=== PATIENT | male | born 1985 | race Two or more races ===

== ENCOUNTER 2018-08-16 12:01 | Emergency (ER) | payer OTHER ==
[2018-08-16 12:24] VITALS: BMI 39.6
--- NOTE | 2018-08-16 12:51 | PDOC ---
History of Present Illness - General Chief Complaint: Chest Pain Stated Complaint: SENT BY PCP Time Seen by Provider: 08/16/18 12:33 History Source: Patient Exam Limitations: No Limitations - History of Present Illness Initial Comments: 08/16/18 12:37 [id number] with h/o obesity who p/w about 3 months off-and-on chest pressure with occasional sharp or burning pain. He states that the pain last all day then subsides the next day, then reoccurs. He has not taken any medications for the pain. He denies any recent f/c/n/v/d/c, SOB, abdominal pain, leg swelling, back pain, headache, lightheadedness/dizziness, or other symptoms. He does note having gained about 25 lbs in the past ~3 months and cites unhealthy eating. He additionally notes having been diagnosed with high cholesterol when he was a child, but states he never was treated for this and it "never ended up being a problem". Past History - Past Medical History Allergies/Adverse Reactions: Allergies Allergy/AdvReac Type Severity Reaction Status Date / Time No Known Allergies Allergy Verified 08/16/18 12:19 Home Medications: Ambulatory Orders NK [No Known Home Medication] 08/16/18 COPD: No Hypercholesterolemia: Yes Thyroid Disease: No - Suicide/Smoking/Psychosocial Hx Smoking History: Never smoked Have you smoked in the past 12 months: No Hx Alcohol Use: No Drug/Substance Use Hx: No Substance Use Type: None Review of Systems - Review of Systems Able to Perform ROS?: Yes Comments:: 08/16/18 15:05 GEN: no fever, chills, malaise, generalized weakness, or weight change HEENT: no ear pain, sore throat, vision change, or eye pain CV: chest pain, SOB, no palpitations, lightheadedness, syncope, or edema RESP: no cough, wheezing, or GI: no abdominal pain, nausea, vomiting, diarrhea, constipation, or white/black/ bloody stool : no dysuria, hematuria, incontinence, retention, bleeding, or discharge MSK: no neck/back pain, muscle weakness/pain, or joint swelling/pain NEURO: no headache, seizure, vertigo, numbness, tingling, or focal weakness PSYCH: no substance use, no behavior change SKIN: no jaundice, no rash ROS otherwise negative except as noted in HPI *Physical Exam - Vital Signs Last Vital Signs Temp Pulse Resp BP Pulse Ox 98 F 93 H 20 141/81 98 08/16/18 19:09 08/16/18 19:09 08/16/18 19:09 08/16/18 19:09 08/16/18 19:09 - Physical Exam Comments: 08/16/18 15:15 GENERAL: well-appearing, A/Ox4, no distress, answers questions appropriately HEENT: PERRLA, EOMI, moist mucous membranes NECK/BACK: no midline ttp, no spinal stepoff or deformity, no hematoma, full ROM , neck supple CARDIOVASCULAR: regular rate/rhythm, normal S1S2, no MGR, strong peripheral pulses, capillary refill <2 seconds, extremities wwp, no edema LUNGS/RESPIRATORY: no respiratory distress, CTAB GI/ABDOMEN: symmetric [id number], normoactive BS, soft, no ttp, no midline pulsatile masses : no CVA tenderness EXTREMITIES: no muscle atrophy, no acute deformity SKIN: warm and dry, no pallor, no jaundice, no rash, no bruising, no skin breakdown, no cuts, no lesions NEUROLOGICAL: GCS 15, CN II-XII grossly intact, 5/5 strength proximally and distally, no facial droop Heart Score/ECG Review - History History: Slightly suspicious - Electrocardiogram EKG: Non specific repolarization disturbance - Age Age: </= 45 - Risk Factors Risk Factors Heart Score: Yes Hx Hypercholesterolemia, Yes Hx Obesity Based on the list above the patient has:: 1-2 risk factors - Troponin Troponin: </= normal limit - Score Heart Score - Total: 2 - P and [place] Comment:: Sinus tachycardia, rate of 108, normal axis and intervals, anterior early repol versus small MARY but there are no reciprocal changes ED Treatment Course - LABORATORY CBC & Chemistry Diagram: 08/16/18 12:46 08/16/18 12:46 - ADDITIONAL ORDERS Additional order review: 08/16/18 12:46 RBC 5.35 MCV 91.3 MCHC 34.7 RDW 13.1 MPV 8.9 Neutrophils % 52.7 Lymphocytes % 35.9 Monocytes % 9.4 Eosinophils % 1.1 Basophils % 0.9 - RADIOLOGY Radiology Studies Ordered: Category Date Time Status CHEST X-RAY PORTABLE* [RAD] Stat Radiology 08/16/18 12:36 Completed - Medications Given in the ED: ED Medications Discontinued Medications Generic Name Dose Route Start Last Admin Trade Name Benedict PRN Reason Stop Dose Admin Acetaminophen 1,000 mg 08/16/18 13:59 08/16/18 14:14 Ofirmev Injection - IVPB 08/16/18 14:00 1,000 mg ONCE ONE Administration Sodium Chloride 1,000 mls @ 1,000 mls/hr 08/16/18 13:59 08/16/18 14:14 Normal Saline - IV 08/16/18 14:58 1,000 mls/hr ASDIR STA Administration Ketamine HCl 355 mg 08/16/18 14:28 08/16/18 15:39 Ketalar - IVPUSH 08/16/18 14:29 Not Given ONCE ONE Medical Decision Making - Medical Decision Making 08/16/18 15:43 Adult Pt p/w chest pain intermittently x3 months. Initial Vital Signs Temp Pulse Resp BP Pulse Ox 97.9 F 104 H 20 140/96 98 08/16/18 12:20 08/16/18 12:20 08/16/18 12:20 08/16/18 12:20 08/16/18 12:20 Exam: As noted in Physical Exam section. DDX IBNLT: ACS, pericarditis, tamponade, aortic dissection, AAA, PTX, PE, esophageal tear, esophagitis (e.g. pill, infectious), esophageal stricture, esophageal FB, gastritis, PUD, pancreatitis, cholecystitis, cholangitis, colitis , bowel perforation, PNA/bronchitis, pleurisy, pleuritis, MVP, pulmonary HTN, musculoskeletal, panic/anxiety, etc. W/U ordered: Labs as noted below EKG CXR. TX ordered: monitor, ofirmev EKG: Reviewed; results as noted in ECG Review section. CXR: Nothing acute Laboratory Tests 08/16/18 08/16/18 08/16/18 12:46 12:46 12:46 WBC 6.2 RBC 5.35 Hgb 16.9 Hct 48.9 MCV 91.3 MCH 31.6 MCHC 34.7 RDW 13.1 Plt Count 224 MPV 8.9 Absolute Neuts (auto) 3.3 Neutrophils % 52.7 Lymphocytes % 35.9 Monocytes % 9.4 Eosinophils % 1.1 Basophils % 0.9 Nucleated RBC % 0 PT with INR 11.20 INR 0.95 PTT (Actin FS) 39.8 H D-Dimer Sodium 137 Potassium 4.0 Chloride 104 Carbon Dioxide 27 Anion Gap 7 L BUN 15 Creatinine 1.0 Creat Clearance w eGFR 86.06 Random Glucose 156 H Calcium 8.4 L Magnesium 2.2 Total Bilirubin 0.3 AST 24 ALT 67 H Alkaline Phosphatase 70 Creatine Kinase 96 Troponin I < 0.02 B-Natriuretic Peptide 7.0 Total Protein 7.5 Albumin 3.9 Lipase 128 Blood Type Antibody Screen 08/16/18 08/16/18 12:46 12:46 WBC RBC Hgb Hct MCV MCH MCHC RDW Plt Count MPV Absolute Neuts (auto) Neutrophils % Lymphocytes % Monocytes % Eosinophils % Basophils % Nucleated RBC % PT with INR INR PTT (Actin FS) D-Dimer 249 Sodium Potassium Chloride Carbon Dioxide Anion Gap BUN Creatinine Creat Clearance w eGFR Random Glucose Calcium Magnesium Total Bilirubin AST ALT Alkaline Phosphatase Creatine Kinase Troponin I B-Natriuretic Peptide Total Protein Albumin Lipase Blood Type O POSITIVE Antibody Screen Negative 08/16/18 15:46 I have spoken with Dr. Arrington who will consult and see the patient in the ED. Patient will need an echo but it is unclear whether he will need this as inpatient or outpatient. Will repeat troponin. 08/16/18 18:07 Reassessment: Patient states pain has resolved, no sxs currently, and he wants to go home. Echocardiogram official read is negative. Repeat troponin is negative. Repeat VS: HR 95 bpm, SpO2 98% on RA, BP 135/78 RUE. 08/16/18 18:20 Repeat cardiac enzymes are negative. No new abnormal rhythms have been observed on the traffic monitor specialist. On last reassessment VS are stable, Pts pain is resolved, and exam is benign. The Pts HEART score indicates they are low risk and do not require admission currently. The Pt is appropriate for discharge with close outpatient follow up. Referral information is given for Dr. Arrington. They are comfortable with this plan and will follow up with their primary care provider in 1-3 days. Specific return precautions are discussed and they will come back to the ER if necessary. *DC/Admit/Observation/Transfer Diagnosis at time of Disposition: Chest pain Qualifiers: Chest pain type: unspecified Qualified Code(s): R07.9 - Chest pain, unspecified - Discharge Dispostion Disposition: HOME Condition at time of disposition: Stable Decision to Admit order: No - Referrals Referrals: Duncan Arrington MD [Staff Physician] - - Patient Instructions Printed Discharge Instructions: DI for Chest Pain Additional Instructions: You were seen in the ER for chest pain. We did lab work on your blood, an electrocardiogram, a chest x-ray, and an echocardiogram, and we did not find any concerning abnormalities. Your symptoms improved with the medications we gave you in the ER. You saw the group billing coordinator Dr. Arrington here in the ER while you were here. After our assessment, we do not believe you are having a medical emergency at this time, and we believe you are safe to go home. Take over the counter pain medications for your pain, as instructed on the medication label. Please follow up with your regular doctor in 1-3 days, and with the group billing coordinator as well. We are giving you referral information for our group billing coordinator, so call their clinic as soon as possible, remind them you were seen in the ER for chest pain, and tell them you need an appointment. If you have any new or worsening symptoms, especially worsening chest pain, jaw pain, shoulder/arm pain, shortness of breath, sweats, nausea, loss of consciousness, palpitations, or other symptoms, please come back to the ER at any time (24 hours a day). If you are having severe or life threatening symptoms, or symptoms that make it unsafe to drive or have someone drive you, please call 911. - Post Discharge Activity Forms/Work/School Notes: Back to Work
[2018-08-16 13:14] LABS: BASO % 0.9 % (0-2.0); EOS % 1.1 % (0-4.5); HEMATOCRIT 48.9 % (35.4-49); HEMOGLOBIN 16.9 GM/dL (11.7-16.9); LYMPH % 35.9 % (8-40); MCH 31.6 pg (25.7-33.7); MCHC 34.7 g/dl (32.0-35.9); MEAN CELL VOLUME 91.3 fl (80-96); MEAN PLT VOLUME 8.9 fl (7.5-11.1); MONO % 9.4 % (3.8-10.2); NEUT % 52.7 % (42.8-82.8); PLATELET COUNT 224 K/MM3 (134-434); RBC 5.35 M/mm3 (4.00-5.60); RDW 13.1 % (11.9-15.9); WHITE BLOOD COUNT 6.2 K/mm3 (4.0-10.0)
[2018-08-16 13:38] LABS: ACTIVATED PTT 39.8 SECONDS (25.2-36.5); ALBUMIN 3.9 g/dl (3.4-5.0); ALK PHOS 70 U/L (45-117); ANION GAP 7 MMOL/L (8-16); BILIRUBIN,TOTAL 0.3 mg/dL (0.2-1); BLOOD UREA NITROGEN 15 mg/dL (7-18); CALCIUM 8.4 mg/dL (8.5-10.1); CHLORIDE 104 mmol/L (98-107); CO2 27 mmol/L (21-32); GLUCOSE,RANDOM 156 mg/dL (74-106); MAGNESIUM 2.2 mg/dL (1.8-2.4); SGOT/AST 24 U/L (15-37); SGPT/ALT 67 U/L (13-61); SODIUM 137 mmol/L (136-145); TOT PROT 7.5 g/dl (6.4-8.2)
[2018-08-16 13:52] LABS: INR 0.95 (0.83-1.09); PROTHROMBIN TIME (PATIENT) 11.2 SEC (9.7-13.0)
[2018-08-16] MEDS ORDERED: ACETAMINOPHEN 1000 MG/100 ML VIAL (NON FORMULARY) IVPB ONE (13:59)
[2018-08-16] MEDS ORDERED: SODIUM CHLORIDE 1,000 ML IV STA (13:59)
--- NOTE | 2018-08-16 13:59 | PDOC ---
Attending Attestation - Resident Resident Name: Puja Parra - ED Attending Attestation I have performed the following: I have examined & evaluated the patient, The case was reviewed & discussed with the resident, I agree w/resident's findings & plan, Exceptions are as noted - HPI HPI: 08/16/18 13:53 The patient is 33 year old male with a significant past medical history of obesity who presents to the ED with 1 month of intermittent chest pressure with occasional sharp/burning pain. He states that the pain sometimes lasts all day then subsides the next day. Denies F/C. Denies cough. Denies SOB. Pain is not positional and not pleuritic. 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 Pt was establishing care at outpt clinic today and had EKG that showed ST elevations. Pt was sent here for further evaluation. - Physicial Exam PE: 08/16/18 13:55 GENERAL: Awake, alert, and fully oriented, in no acute distress. HEAD: No signs of trauma EYES: PERRLA, EOMI, sclera anicteric, conjunctiva clear ENT: Auricles normal inspection, hearing grossly normal, nares patent, oropharynx clear without exudates. Moist mucosa NECK: Nontender, no stepoffs, Normal ROM, supple, no lymphadenopathy, JVD, or masses LUNGS: Breath sounds equal, clear to auscultation bilaterally. No wheezes, and no crackles HEART: Regular rate and rhythm, normal S1 and S2, no murmurs, rubs or gallops ABDOMEN: Soft, nontender, normoactive bowel sounds. No guarding, no rebound. No masses EXTREMITIES: Normal range of motion, no edema. No clubbing or cyanosis. No cords, erythema, or tenderness NEUROLOGICAL: Cranial nerves II through XII intact. 5/5 strength and sensation in all extremities, Normal speech, normal gait, normal cerebellar function SKIN: Warm, Dry, normal turgor, no rashes or lesions noted. - Medical Decision Making 08/16/18 13:57 33 M with intermittent chest pain x 1 month. EKG shows diffuse ST elevations but NO repriprocal changes. Unlikely to represent ACS. Pt without any infectious symptoms to suggest pericarditis, but this is a possibility. Pt is tachycardic in ED. 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 - Labs, ddimer, trop - CXR - IVF 08/16/18 17:05 Labs wnl, dimer negative Trop negative x2 Dr. Arrington in ED to evaluate pt Echo ordered 08/16/18 17:33 Echo wnl Pt evaluated and cleared for DC by Dr. Arrington Repeat HR 95 Pt is well appearing, with normal vitals. Clinically stable for DC at this time. I discussed the physical exam findings, ancillary test results and final diagnoses with the patient. I answered all of the patient's questions. The patient was satisfied with the care received and felt comfortable with the discharge plan and treatment plan. The patient agrees to follow up with the primary care physician within 24-72 hours.
[2018-08-16] MEDS ORDERED: ACETAMINOPHEN INJECTION 100 ML IVPB ONE (14:09)
[2018-08-16] MEDS ORDERED: KETAMINE HCL 200 MG/20 ML VIAL IVPUSH ONE (14:28)
[2018-08-16 15:30] LABS: LIPASE 128 U/L (73-393)
--- NOTE | 2018-08-16 17:25 | ECHO ---
Name: BRI RIVAS Exam:Adult Echocardiogram Study Date: 08/16/2018 04:27 PM Age: 33 yrs Reason For Study: Chest pain Height: 68 in Weight: 261 lb BSA: 2.3 m2 MMode/2D Measurements & Calculations IVSd: 1.1 cm Ao root diam: 2.8 cm LVIDd: 3.6 cm LA dimension: 3.7 cm LVIDs: 2.7 cm LVPWd: 1.0 cm EDV(Teich): 55.5 ml ESV(Teich): 25.8 ml Doppler Measurements & Calculations MV E max jenise: 64.2 cm/sec Ao V2 max: 105.0 cm/sec MV A max jenise: 64.2 cm/sec Ao max P.4 mmHg MV E/A: 1.0 Ao V2 mean: 74.1 cm/sec MV dec time: 0.20 sec Ao mean P.0 mmHg Ao V2 VTI: 16.9 cm LV V1 max P.7 mmHg Med Peak E' Jenise: 5.5 cm/sec LV V1 mean P.0 mmHg Med E/e': 11.7 LV V1 max: 108.0 cm/sec Lat Peak E' Jenise: 8.9 cm/sec LV V1 mean: 62.9 cm/sec Lat E/e': 7.2 LV V1 VTI: 15.0 cm Left Ventricle The left ventricular size, thickness and function are normal. Ejection Fraction = 70%. Left Ventricul ar Filling pattern is normal for age. No regional wall motion abnormalities noted. Right Ventricle The right ventricle is normal in size and function. Atria Normal left and right atrial size and function. Mitral Valve The mitral valve is normal in structure and function. Tricuspid Valve The tricuspid valve is normal in structure and function. There was insufficient TR detected to calcul ate RV systolic pressure. Aortic Valve The aortic valve is normal in structure and function. Pulmonic Valve The pulmonic valve is not well visualized. Great Vessels The aortic root is normal size. Pericardium/Pleura There is no pericardial effusion. Interpretation Summary This was essentially a normal study. MD Jolie Pappas 08/16/2018 05:24 PM
[2018-08-16 19:11] VITALS: BP 141/81; PULSE 93; TEMP 98
--- NOTE | 2018-08-16 21:57 | EKG ---
Test Reason : Blood Pressure : / mmHG Vent. Rate : 108 BPM Atrial Rate : 108 BPM P-R Int : 146 ms QRS Dur : 096 ms QT Int : 334 ms P-R-T Axes : 042 074 041 degrees QTc Int : 447 ms SINUS TACHYCARDIA NONSPECIFIC ST ABNORMALITY ABNORMAL ECG NO PREVIOUS ECGS AVAILABLE Confirmed by MD JACE, SUMANTH ([id number]) on 08/16/2018 9:57:15 PM Referred By: Confirmed By:SUMANTH MCCORMICK MD
--- NOTE | 2018-08-16 23:07 | CON.CARD ---
Consult Consult Specialty:: cardiology Reason for Consultation:: chest pain; EKG changes - History of Present Illness Chief Complaint: Pt A&Ox3; asymptomatic presently. History of Present Illness: The patient is 33 year old male with a significant past medical history of obesity who presents to the ED with 1 month of intermittent chest pressure with occasional sharp/burning pain. He states that the pain sometimes lasts all day then subsides the next day. Denies F/C. Denies cough. Denies SOB. Pain is not positional and not pleuritic. 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 Pt was establishing care at outpt clinic today and had EKG that showed ST elevations. Pt was sent here for further evaluation. - Alcohol/Substance Use Hx Alcohol Use: No - Smoking History Smoking history: Never smoked Have you smoked in the past 12 months: No Home Medications - Allergies Allergies/Adverse Reactions: Allergies Allergy/AdvReac Type Severity Reaction Status Date / Time No Known Allergies Allergy Verified 08/16/18 12:19 - Home Medications Home Medications: Ambulatory Orders NK [No Known Home Medication] 08/16/18 Vital Signs: Vital Signs Temperature 98 F 08/16/18 19:09 Pulse Rate 93 H 08/16/18 19:09 Respiratory Rate 20 08/16/18 19:09 Blood Pressure 141/81 08/16/18 19:09 O2 Sat by Pulse Oximetry (%) 98 08/16/18 19:09 - Other Data Labs, Other Data: CBC, BMP 08/16/18 12:46 08/16/18 12:46 INR, PTT INR 0.95 (0.83-1.09) 08/16/18 12:46 Troponin, BNP 08/16/18 08/16/18 12:46 16:15 Troponin I < 0.02 < 0.02 B-Natriuretic Peptide 7.0 Troponin, BNP 08/16/18 08/16/18 12:46 16:15 Troponin I < 0.02 < 0.02 B-Natriuretic Peptide 7.0
--- NOTE | 2018-08-18 15:17 | EKG ---
Test Reason : Blood Pressure : / mmHG Vent. Rate : 078 BPM Atrial Rate : 078 BPM P-R Int : 134 ms QRS Dur : 072 ms QT Int : 348 ms P-R-T Axes : 055 033 041 degrees QTc Int : 396 ms POOR DATA QUALITY, INTERPRETATION MAY BE ADVERSELY AFFECTED NORMAL SINUS RHYTHM NORMAL ECG WHEN COMPARED WITH ECG OF 16-AUG-2018 12:17, QRS DURATION HAS DECREASED ST NO LONGER ELEVATED IN INFERIOR LEADS QT HAS SHORTENED Confirmed by LORRIE DAY MD ([id number]) on 08/18/2018 3:16:36 PM Referred By: Confirmed By:LORRIE DAY MD
== END 2018-08-16 19:11 | disposition home or self-care (01) ==
LOC: JER 12:01
PROC: 3E033NZ Introduction of Analgesics, Hypnotics, Sedatives into Peripheral Vein, Percutaneous Approach (ICD-10-PCS; principal; 2018-08-16)
DX: R07.9 Chest pain, unspecified (principal); E78.00 Pure hypercholesterolemia, unspecified
CPT/HCPCS: 36415; 71045-TC-FY; 80053; 82550; 83690; 83735; 83880; 84484; 85025; 85379; 85610; 85730; 86850; 86900; 86901; 93005; 93010; 93306-TC; 96374; 99283-25; J0131; J7030

== ENCOUNTER 2019-03-28 14:11 | Emergency (ER) | payer OTHER ==
--- NOTE | 2019-03-28 14:20 | PDOC ---
Rapid Medical Evaluation Time Seen by Provider: 03/28/19 14:16 Medical Evaluation: Allergies Allergy/AdvReac Type Severity Reaction Status Date / Time No Known Allergies Allergy Verified 08/16/18 12:19 03/28/19 14:18 CC: headache s/p head trauma 2 days ago PE: tenderness to right orbit. Ecchymosis present to right inferior orbit. Healing laceration to lateral right orbit. EOMI. PERRLA Orders: CT head and facial bones The patient will proceed to the ER for continued Evaluation. Discharge Disposition - Diagnosis Post-traumatic headache - Referrals - Patient Instructions - Post Discharge Activity
[2019-03-28 14:25] VITALS: BP 151/97; PULSE 109; TEMP 98.3; BMI 38.0
--- NOTE | 2019-03-28 15:51 | PDOC ---
History of Present Illness - General Chief Complaint: Headache Stated Complaint: SENT BY PCP/HEADEACHE Time Seen by Provider: 03/28/19 14:16 History Source: Patient Exam Limitations: No Limitations - History of Present Illness Initial Comments: 03/28/19 15:46 33-year-old male presents to ED with complaints of pain to his right forehead and cheek along with mild dizziness since being struck by a building ceiling on Wednesday. Patient states there was right and ceiling on the building where he resides when he was walking outside and fell striking him on his face. Patient states no LOC and went to his doctor's today for the complaints and was sent to the ER for further evaluation. Patient denies visual changes, nausea, neck pain , or weakness. 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 denies: nausea/vomiting Past History - Travel Traveled outside of the country in the last 30 days: No Close contact w/someone who was outside of country & ill: No - Past Medical History Allergies/Adverse Reactions: Allergies Allergy/AdvReac Type Severity Reaction Status Date / Time No Known Allergies Allergy Verified 08/16/18 12:19 Home Medications: Ambulatory Orders NK [No Known Home Medication] 08/16/18 COPD: No HTN: Yes Hypercholesterolemia: Yes Thyroid Disease: No - Psycho Social/Smoking Cessation Hx Smoking History: Never smoked Have you smoked in the past 12 months: No Information on smoking cessation initiated: No Hx Alcohol Use: No Drug/Substance Use Hx: No Substance Use Type: None Patient Lives Alone: No Lives with/in: spouse/SO Review of Systems - Review of Systems Able to Perform ROS?: Yes Constitutional: No: Symptoms Reported HEENTM: No: Symptoms Reported Respiratory: No: Symptoms reported Cardiac (ROS): Yes: Lightheadedness ABD/GI: No: Nausea : No: Symptoms Reported Musculoskeletal: No: Symptoms Reported Integumentary: Yes: See HPI Neurological: Yes: Dizziness Hematologic/Lymphatic: No: Symptoms Reported *Physical Exam - Vital Signs Last Vital Signs Temp Pulse Resp BP Pulse Ox 98.3 F 109 H 20 151/97 96 03/28/19 14:21 03/28/19 14:21 03/28/19 14:21 03/28/19 14:21 03/28/19 14:21 - Physical Exam General Appearance: Yes: Nourished, Appropriately Dressed. No: Apparent Distress HEENT: positive: EOMI, MANUELA, TMs Normal Neck: positive: Supple. negative: Tender lateral, Tender midline Integumentary: positive: Ecchymosis (Along with edema over the orbital floor and frontal bone of the right eye noted abrasion to the lateral aspect of eye. No eye involvement) Neurologic: positive: Motor Strength 5/5 (Ambulatory) Medical Decision Making - Medical Decision Making 03/28/19 15:06 Chief complaint: Patient sent here by PCP for evaluation of dizziness after sustaining a blunt injury to his right side of face on Wednesday secondary to a piece of the building ceiling falling approximately 10 feet landing on his face. Patient states material composed of sheet rock. no visual changes. No nausea Exam: Patient with ecchymotic edematous right forehead and orbital floor/cheek. Patient also with small superficial abrasion to lateral aspect of right eye. Otherwise normal physical exam. Plan: Head and facial CT ordered 03/28/19 167:[address] negative for acute pathology. 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 Avoid reading or texting small print more than 15 minutes along with watching TV. All of these precautions should be followed for 1 week and if your symptoms worsen please return to the nearest emergency room I also recommend taking Tylenol only for discomfort. Please read over information regards to concussion as your CT of the face and head were negative. - Post Discharge Activity Work/Back to School Note: Back to Work
== END 2019-03-28 16:14 | disposition home or self-care (01) ==
LOC: JER 14:11
DX: G44.319 Acute post-traumatic headache, not intractable (principal); S05.11XA Contusion of eyeball and orbital tissues, right eye, initial encounter; W20.1XXA Struck by object due to collapse of building, initial encounter; Y93.89 Activity, other specified; Y92.038 Other place in apartment as the place of occurrence of the external cause; Y99.8 Other external cause status; I10 Essential (primary) hypertension; E78.00 Pure hypercholesterolemia, unspecified
CPT/HCPCS: 70450-TC; 70486-TC; 99281-25

== ENCOUNTER 2019-06-12 08:00 | Inpatient (IN) | payer BC, OTHER ==
[2019-06-14 16:33] VITALS: BMI 36.5
[2019-07-03] MEDS ORDERED: BUPIVACAINE HCL/PF 0.5% (5 MG/ML) 30 ML VIAL IJ ONE (11:10)
[2019-07-03] MEDS ORDERED: MIDAZOLAM HCL 2 MG/2 ML SINGLE DOSE VIAL ONE ×2 (11:10→11:57)
[2019-07-03] MEDS ORDERED: BUPIVACAINE HCL 0.25% 125 MG/50 ML VIAL ONE (11:34)
--- NOTE | 2019-07-03 11:52 | HP ---
Admitting History and Physical - Admission Chief Complaint: Morbid obesity History Source: Patient Limitations to Obtaining History: No Limitations - Past Medical History Endocrine: Yes: Diabetes Mellitus - Past Surgical History Additional Past Surgical History: Right knee surgery - Smoking History Smoking history: Never smoked Have you smoked in the past 12 months: No - Alcohol/Substance Use Hx Alcohol Use: No - Social History ADL: Independent Home Medications - Allergies Allergies/Adverse Reactions: Allergies Allergy/AdvReac Type Severity Reaction Status Date / Time No Known Allergies Allergy Verified 06/14/19 16:27 - Home Medications Home Medications: Ambulatory Orders Metformin HCl [Glucophage] 500 mg PO BID 06/14/19 Family Medical History Family History: Unremarkable Review of Systems - Review of Systems Constitutional: denies: Chills, Fever Neck: reports: No Symptoms Cardiovascular: reports: No Symptoms Respiratory: reports: No Symptoms Gastrointestinal: reports: No Symptoms Neurological: reports: No Symptoms Physical Examination Vital Signs: Vital Signs Temperature 98.7 F 07/03/19 10:15 Pulse Rate 96 H 07/03/19 10:15 Respiratory Rate 18 07/03/19 10:15 Blood Pressure 132/88 07/03/19 10:15 O2 Sat by Pulse Oximetry (%) Constitutional: Yes: Calm Eyes: Yes: WNL Neck: Yes: WNL Cardiovascular: Yes: WNL Respiratory: Yes: WNL Gastrointestinal: Yes: Soft, Abdomen, Obese Neurological: Yes: Alert, Oriented Problem List - Problems (1) Morbid obesity due to excess calories Code(s): E66.01 - MORBID (SEVERE) OBESITY DUE TO EXCESS CALORIES (2) Diabetes mellitus type 2 in obese Code(s): E11.69 - TYPE 2 DIABETES MELLITUS WITH OTHER SPECIFIED COMPLICATION; E66.9 - OBESITY, UNSPECIFIED Assessment/Plan Laparoscopic possible open vertical sleeve gastrectomy possible liver biopsy, upper endoscopy
[2019-07-03] MEDS ORDERED: LIDOCAINE HCL 2% JELLY (5 ML/TUBE) ONE (11:57)
[2019-07-03] MEDS ORDERED: DEXAMETHASONE SOD PHOSPHATE 4 MG/1 ML VIAL ONE (11:57)
[2019-07-03] MEDS ORDERED: GLYCOPYRROLATE 0.2 MG/1 ML VIAL ONE (11:57)
[2019-07-03] MEDS ORDERED: fentaNYL CITRATE 250 MCG/5 ML VIAL ONE (11:57)
[2019-07-03] MEDS ORDERED: NEOSTIGMINE METHYLSULFATE 0.5 MG/ML - 10 ML MDV ONE (11:57)
[2019-07-03] MEDS ORDERED: ONDANSETRON 4 MG/2 ML VIAL ONE ×2 (11:57→13:47)
[2019-07-03] MEDS ORDERED: EPHEDRINE SULFATE/0.9% NACL/PF 50 MG/10 ML SYRINGE NR ONE (11:57)
[2019-07-03] MEDS ORDERED: ROCURONIUM BROMIDE 50 MG/5 ML SYRINGE ONE ×2 (11:57→12:34)
[2019-07-03] MEDS ORDERED: SUCCINYLCHOLINE CHLORIDE 200 MG/10 ML SYRINGE ONE (11:57)
[2019-07-03] MEDS ORDERED: LIDOCAINE HCL/PF 2% SDV 5ML VIAL ONE (11:57)
[2019-07-03] MEDS ORDERED: PROPOFOL 20 ML ONE ×4 (11:59→12:57)
[2019-07-03] MEDS ORDERED: BUPIVACAINE HCL/PF 0.25% (2.5MG/ML) 10 ML VIAL IJ ONE (12:50)
[2019-07-03] MEDS ORDERED: ONDANSETRON 4 MG/2 ML VIAL IVPUSH PRN (13:06)
[2019-07-03] MEDS ORDERED: LACTATED RINGERS SOLUTION 1,000 ML IV SCH (13:15)
--- NOTE | 2019-07-03 13:21 | OPR ---
Operative Note Operative Date: 07/03/19 Pre-Operative Diagnosis: Morbid obesity Operation: 1. Diagnostic laparoscopy. 2. Laparoscopic vertical sleeve gastrectomy. 3. Laparoscopic wedge liver biopsy. 4. Laparoscopic oversewing of gastric staple line Post-Operative Diagnosis: Same as Pre-op (as well as hepatomegaly and oozing from gastric staple line) Surgeon: Juan Henderson Environmental Compliance Officer: David Zavala Anesthesia: General Specimens Removed: Greater curvature of stomach. Liver biopsy. Estimated Blood Loss (mls): 30 Drains & Tubes with Location: 36 Fr Bougie Operative Report Dictated: Yes
[2019-07-03] MEDS ORDERED: FAMOTIDINE 20 MG/50 ML IVPB 20 MG/50 ML MG IVPB ONE (13:26)
[2019-07-03] MEDS ORDERED: SODIUM CHLORIDE 1,000 ML IV SCH (13:30)
[2019-07-03] MEDS ORDERED: ACETAMINOPHEN INJECTION 100 ML IVPB ONE (13:31)
[2019-07-03 14:01] LABS: HEMATOCRIT 49.3 % (35.4-49); HEMOGLOBIN 16.4 GM/dl (11.7-16.9); MCH 31.3 pg (25.7-33.7); MCHC 33.3 g/dl (32.0-35.9); MEAN CELL VOLUME 94.1 fl (80-96); MEAN PLT VOLUME 9.9 fl (7.5-11.1); PLATELET COUNT 212 K/MM3 (134-434); RBC 5.24 M/mm3 (4.00-5.60); RDW 11.6 % (11.9-15.9); WHITE BLOOD COUNT 6.1 K/mm3 (4.0-10.8)
[2019-07-03 14:22] LABS: BILIRUBIN,TOTAL 0.5 mg/dl (0.2-1); CALCIUM 8.4 mg/dl (8.5-10); CREATININE 0.9 mg/dl (0.55-1.3); POTASSIUM 3.8 mmol/L (3.5-5.1); TOT PROT 7.2 g/dl (6.4-8.2)
[2019-07-03] MEDS ORDERED: PROMETHAZINE HCL 25 MG/1 ML VIAL ONE (14:29)
[2019-07-03] MEDS: HYDROmorphone HCL CARPU-JECT 1 MG/1 ML DISP.SYRIN IVPB PRN (16:00)
[2019-07-03] MEDS: INSULIN SLIDING SCALE (NOVOLOG) 1 VIAL SQ SCH (17:04)
[2019-07-03] MEDS: ONDANSETRON 4 MG/2 ML VIAL IVPUSH SCH ×2 (17:30→21:12)
[2019-07-03] MEDS: ACETAMINOPHEN 1000 MG/100 ML VIAL (NON FORMULARY) IVPB SCH (18:50)
[2019-07-03] MEDS: METOCLOPRAMIDE HCL INJECTION 10 MG/2 ML VIAL IVPUSH SCH (18:55)
[2019-07-03] MEDS: FAMOTIDINE 20 MG/50 ML IVPB 20 MG/50 ML MG IVPB SCH (21:12)
[2019-07-03] MEDS: ENOXAPARIN NA (PORCINE) 40 MG/0.4 ML DISP.SYRIN SQ SCH (21:12)
--- NOTE | 2019-07-03 21:46 | SPEC ---
DATE OF OPERATION: 07/03/2019 SURGEON: Tatiana Henderson MD FAGOTING MACHINE OPERATOR: David Zavala MD PLACE OF SERVICE: [facility], [address] [place] [address] PREOPERATIVE DIAGNOSES: 1. Morbid obesity. 2. Diabetes mellitus, type 2. POSTOPERATIVE DIAGNOSES: 1. Morbid obesity. 2. Diabetes mellitus, type 2. 3. Hepatomegaly. 4. Oozing from gastric staple line. PROCEDURE: 1. Diagnostic laparoscopy. 2. Laparoscopic vertical sleeve gastrectomy. 3. Laparoscopic wedge liver biopsy. 4. Laparoscopic oversewing of gastric staple line for oozing. SPECIMEN: 1. Greater curve of the stomach. 2. Liver biopsy. ESTIMATED BLOOD LOSS: 30 mL. DRAINS: None. ANESTHESIA: GET. BOUGIE: Size 36 Khmer. REASON FOR PROCEDURE: This is a 34-year-old gentleman who presented to the office for weight loss options. After describing different options, he decided to proceed with a laparoscopic, possible open, vertical sleeve gastrectomy, possible liver biopsy, upper endoscopy. RISKS AND BENEFITS: After describing the different options for weight loss management, the patient decided to proceed with a laparoscopic, possible open vertical sleeve gastrectomy. The patient was seen by the respective subspecialties and cleared for surgery. The risks and benefits of the procedure were explained. These included bleeding, infection, hernia, [place], DVT, PE, injury to surrounding structures including the liver, colon, bowel, spleen, esophagus, vessel injury, nerve injury, weight regain, gastric leak, staple line leak, sleeve leak, obstruction, vitamin deficiency, hair loss and as some of the possible complications. The patient understood and signed informed consent. DESCRIPTION OF PROCEDURE: The patient was placed supine on the operating room table. The patient underwent general endotracheal intubation. The arms were brought out at 90 degrees and secured. A footboard was placed and the legs were secured laterally with padding. The abdomen was prepped and draped in the usual sterile fashion. A timeout was performed. An incision was made in the left upper quadrant and a Veress needle inserted. Pneumoperitoneum was established. Subsequently, the Veress needle was removed and a 5-mm trocar was placed under direct visualization with the laparoscope. The laparoscopic camera was then inserted and inspection of the abdominal cavity was performed. An incision was then made in the supraumbilical area and a 15-mm trocar was placed under direct visualization. A 5-mm trocar was then placed in the right upper quadrant and a 5-mm trocar was placed below the left subcostal margin. A stab wound was made in the subxiphoid area and a Lucy clamp inserted and removed to dilate the tract. A Aydee liver retractor was inserted. The post was secured at the bedside by the nursing staff. The patient was placed in steep reverse Trendelenburg position and the Aydee liver retractor was used to secure the liver towards the anterior abdominal wall. The pylorus was identified and 6 cm proximal to it, the lesser sac was entered using the LigaSure device. All lateral attachments to the greater curvature of the stomach, including the short gastric vessels, were ligated using the LigaSure device toward the gastrosplenic and gastrophrenic ligaments. Once this was done in its entirety, it was confirmed that all tubes within the nasal or oropharyngeal cavity, including a temperature probe were removed by Anesthesia. The bougie was then inserted by Anesthesia. Transection of the stomach was then begun staying adjacent to the bougie but away from the angularis. Transection of the stomach was performed near the portion of the stomach where the lesser sac was entered. Two laparoscopic Endo-KAILA black gauri were used at this location. Laparoscopic Endo KAILA purple staple loads were then used for the remainder of the transection until the greater curvature of the stomach was fully transected. This was done staying close to the bougie. Care was taken to stay away from the angle of His cephalad. The staple line was then inspected. Hemostasis was identified. A leak test was then performed. It was clamped distally to the staple line. Irrigation solution was placed in the left upper quadrant and air was insufflated by Anesthesia into the sleeve. No leaks were identified. No obstruction was identified. This was done through the entirety of the staple line. The stomach was suctioned and the bougie removed fully intact under direct visualization. At this point, the irrigation solution was suctioned and again, hemostasis was noted. A wedge liver biopsy was then performed. The left lobe of the liver was identified. A portion of the edge of the left lobe of the liver was grasped. Using electrocautery, a wedge of the left liver was excised. The specimen was removed and sent off the field. Hemostasis of the wedge liver biopsy site was attained and noted using electrocautery. The 15-mm supraumbilical trocar was then removed and the greater curvature specimen removed from the site using a sponge stick stone. A Christo-Dory device was then used to close the fascia with a 0 Vicryl suture at the site. Again, hemostasis was noted. The Aydee liver retractor was then removed under direct visualization. Pneumoperitoneum was desufflated. Hemostasis was noted at all incision sites and Marcaine was injected at all incision sites. A 3-0 Vicryl suture was used to close the deep subcutaneous tissue at the 15-mm incision site. All incision sites were closed using 4-0 Biosyn. Sterile dressings were applied. The patient tolerated the procedure well and was transferred to the recovery room in stable condition. In addition, please note, because of oozing, the staple line needed to be oversewn at the upper portion. This was done using Endostitch with a Surgidac suture. Hemostasis was controlled. The remainder of the procedure was continued. Patient tolerated the procedure well, transferred to recovery room in stable condition. TATIANA HENDERSON M.D. [id number]
[2019-07-04] MEDS: ONDANSETRON 4 MG/2 ML VIAL IVPUSH SCH ×3 (00:38→09:45)
[2019-07-04] MEDS: ACETAMINOPHEN 1000 MG/100 ML VIAL (NON FORMULARY) IVPB SCH ×2 (00:39→08:00)
[2019-07-04] MEDS: METOCLOPRAMIDE HCL INJECTION 10 MG/2 ML VIAL IVPUSH SCH ×2 (00:39→07:30)
[2019-07-04] MEDS: HYDROmorphone HCL CARPU-JECT 1 MG/1 ML DISP.SYRIN IVPB PRN ×3 (02:43→10:30)
[2019-07-04 06:21] VITALS: BP 137/91; PULSE 96; TEMP 98.8
[2019-07-04] MEDS: INSULIN SLIDING SCALE (NOVOLOG) 1 VIAL SQ SCH ×2 (06:52→07:32)
[2019-07-04 07:54] LABS: HEMATOCRIT 43.3 % (35.4-49); HEMOGLOBIN 14.6 GM/dl (11.7-16.9); MCH 31.2 pg (25.7-33.7); MCHC 33.6 g/dl (32.0-35.9); MEAN PLT VOLUME 9.9 fl (7.5-11.1); PLATELET COUNT 207 K/MM3 (134-434); RBC 4.66 M/mm3 (4.00-5.60); RDW 11.6 % (11.9-15.9); WHITE BLOOD COUNT 8.2 K/mm3 (4.0-10.8)
[2019-07-04 08:05] LABS: ALBUMIN 3.5 g/dl (3.4-5.0); BILIRUBIN,TOTAL 1.1 mg/dl (0.2-1); CREATININE 0.8 mg/dl (0.55-1.3); TOT PROT 6.6 g/dl (6.4-8.2)
--- NOTE | 2019-07-04 08:59 | DS ---
Physical Exam: SUBJECTIVE: Patient seen and examined OBJECTIVE: Vital Signs Temperature 98.8 F 07/04/19 06:00 Pulse Rate 96 H 07/04/19 06:00 Respiratory Rate 18 07/04/19 06:00 Blood Pressure 137/91 07/04/19 06:00 O2 Sat by Pulse Oximetry (%) 99 07/04/19 00:50 PHYSICAL EXAM GENERAL: The patient is awake, alert, and fully oriented, in no acute distress. HEAD: Normal with no signs of trauma. EYES: PERRL, extraocular movements intact, sclera anicteric, conjunctiva clear. ENT: Ears normal, nares patent, oropharynx clear without exudates, moist mucous membranes. NECK: Trachea midline, full range of motion, supple. LUNGS: breathing comfortably no accessory muscle use. ABDOMEN: Soft,mild diffuse tenderness, nondistended, incisions are clean no erythema, no guarding, no rebound, no hepatosplenomegaly, no masses. EXTREMITIES: warm, well-perfused, no edema. NEUROLOGICAL: Cranial nerves II through XII grossly intact. Normal speech, gait not observed. PSYCH: Normal mood, normal affect. SKIN: Warm, dry, normal turgor, no rashes or lesions noted. LABS CBC,CMP WBC 8.2 K/mm3 (4.0-10.8) 07/04/19 07:20 RBC 4.66 M/mm3 (4.00-5.60) 07/04/19 07:20 Hgb 14.6 GM/dl (11.7-16.9) 07/04/19 07:20 Hct 43.3 % (35.4-49) 07/04/19 07:20 MCV 93.0 fl (80-96) 07/04/19 07:20 MCH 31.2 pg (25.7-33.7) 07/04/19 07:20 MCHC 33.6 g/dl (32.0-35.9) 07/04/19 07:20 RDW 11.6 % (11.9-15.9) L 07/04/19 07:20 Plt Count 207 K/MM3 (134-434) 07/04/19 07:20 MPV 9.9 fl (7.5-11.1) 07/04/19 07:20 Sodium 135 mmol/L (136-145) L 07/04/19 07:20 Potassium 4.0 mmol/L (3.5-5.1) 07/04/19 07:20 Chloride 102 mmol/L (98-107) 07/04/19 07:20 Carbon Dioxide 27 mmol/L (21-32) 07/04/19 07:20 Anion Gap 6 MMOL/L (8-16) L 07/04/19 07:20 BUN 11.0 mg/dl (7-18) 07/04/19 07:20 Creatinine 0.8 mg/dl (0.55-1.3) 07/04/19 07:20 Est GFR (CKD-EPI)AfAm 135.08 07/04/19 07:20 Est GFR (CKD-EPI)NonAf 116.55 07/04/19 07:20 POC Glucometer 193 UNITS (80-120) 07/04/19 06:18 Random Glucose 216 mg/dl (74-106) H 07/04/19 07:20 Calcium 8.0 mg/dl (8.5-10) L 07/04/19 07:20 Total Bilirubin 1.1 mg/dl (0.2-1) H 07/04/19 07:20 AST 42 U/L (15-37) H 07/04/19 07:20 ALT 78 U/L (13-61) H 07/04/19 07:20 Alkaline Phosphatase 46 U/L (45-117) D 07/04/19 07:20 Total Protein 6.6 g/dl (6.4-8.2) 07/04/19 07:20 Albumin 3.5 g/dl (3.4-5.0) 07/04/19 07:20 HOSPITAL COURSE: Date of Admission:07/03/19 Date of Discharge: 07/04/19 HOSPITAL COURSE: The patient was admitted to the Med-Surg Unit after elective bariatric surgery. Now, s/p laparoscopic vertical sleeve gastrectomy. The day of surgery, the patient ambulated the hallways with assistance. The patient was monitored with remote tele/continuous pulse ox. Narcotic and non-narcotic pain management control was achieved with oral and IV pain control. Upper GI series was obtained the following morning and no leak, extravastion or gastric outlet obstruction. Started on a Bariatric Stage 1 diet and tolerated well. Talita-operative IV ABX were administered in addition to GI prophylaxis. DVT prophylaxis was achieved with SCDs and early ambulation. The discharge instructions and an oral pain management plan were reviewed with the patient. All questions answered. Above plan discussed with Dr. Henderson and agreed. Minutes to complete discharge: 20 Visit type - Case Type Case Type: Scheduled - Emergency Emergency Visit: No - New patient This patient is new to me today: Yes Date on this admission: 07/04/19 - Critical Care Critical Care patient: No
--- NOTE | 2019-07-04 09:27 | PN ---
Progress Note (short form) - Note Progress Note: ANESTHESIA POSTOP: 34 yo male, POD#1, s/p gastric sleeve Patient in bed. No complaints. Awaiting GI study. Pain adequately controlled. VSS, Afebrile Continue current care, encouraged IS and ambulation. No anesthetic complications.
[2019-07-04] MEDS ORDERED: oxyCODONE HCL 5 MG TABLET PO PRN (10:28)
[2019-07-04] MEDS ORDERED: SODIUM CHLORIDE 1,000 ML IV SCH (10:30)
[2019-07-04] MEDS: ENOXAPARIN NA (PORCINE) 40 MG/0.4 ML DISP.SYRIN SQ SCH (10:38)
[2019-07-04] MEDS: FAMOTIDINE 20 MG/50 ML IVPB 20 MG/50 ML MG IVPB SCH (10:38)
[2019-07-04] MEDS ORDERED: metFORMIN HCL 500 MG TABLET (FP) PO SCH (16:30)
--- NOTE | 2019-07-06 15:58 | PATH ---
Surgical Pathology Report Patient Name: BRI RIVAS Med. Rec. #: [id number] /Age/Gender: 1985 (Age: 34) / M Account: [id number] Location: [facility] MED-SURG Taken: 07/03/2019 Received: 07/03/2019 Reported: 07/06/2019 Physicians: Juan Henderson M.D. Specimen(s) Received A: GREATER CURVATURE STOMACH B: LIVER BIOPSY Clinical History Morbid obesity Final Diagnosis A. STOMACH, GREATER CURVATURE, LAPAROSCOPIC VERTICAL SLEEVE GASTRECTOMY: PORTION OF STOMACH WITH MILD CHRONIC GASTRITIS. IMMUNOHISTOCHEMICAL STAIN FOR H. PYLORI IS NEGATIVE. B. LIVER, BIOPSY: STEATOHEPATITIS, MILD; SEVERE STEATOSIS (~85%). MILD PERIVENULAR, MILD PERISINUSOIDAL, FOCAL MILD PORTAL AND FOCAL MILD PERIPORTAL FIBROSIS (STAGE I OF 4). SEE COMMENT. Comment: Biopsy is subcapsular. The liver parenchyma demonstrates severe mixed macro and macrovesicular steatosis (~85%). Mild acute and chronic mixed inflammatory infiltrate is noted in portal tracts. No significant bile injury is seen. No granulomas are present. Focal hepatocyte ballooning is noted. No definitive Lakshmi hyaline is identified. The trichrome stain highlights mild perivenular, mild perisinusoidal, focal mild portal and focal mild periportal fibrosis. No increase in iron seen by Iron special stain. Overall, findings show mild steatohepatitis and severe steatosis; stage 1 of 4 (Brunt). Etiologies include alcohol and alcoholic liver injury including metabolic conditions, drug or toxin injury. Suggest clinical and serologic correlation. Electronically Signed Gifty Esquivel M.D. Gross Description A. Received in formalin, labeled "greater curvature of stomach," is a 92 gram, 22.5 x 2.8 x 2.3 cm. portion of stomach with a stapled margin of resection. The serosa is antonio-olvera with minimal attached fat. The mucosa is antonio-pink with focal ulcerations. No mucosal masses are identified. Roll Inspector sections are submitted in one cassette. B. Received in formalin labeled "liver biopsy," is a 2.0 x 0.8 x 0.6 cm antonio portion of soft tissue, consistent with a liver biopsy. The specimen is bisected and entirely submitted in one cassette. 07/04/2019 [facility]07/04/2019
== END 2019-07-04 12:48 | disposition home or self-care (01) | DRG 403 ==
LOC: FM/S 07-03 09:34
PROVIDERS: ADMIT Surgery; ATTEND Surgery
PROC: 0DB64Z3 Excision of Stomach, Percutaneous Endoscopic Approach, Vertical (ICD-10-PCS; principal; 2019-07-03 12:11)
PROC: 0FB24ZX Excision of Left Lobe Liver, Percutaneous Endoscopic Approach, Diagnostic (ICD-10-PCS; 2019-07-03 12:11)
DX: E66.01 Morbid (severe) obesity due to excess calories (principal); Z68.36 Body mass index [BMI] 36.0-36.9, adult; E11.9 Type 2 diabetes mellitus without complications; R16.0 Hepatomegaly, not elsewhere classified; K29.50 Unspecified chronic gastritis without bleeding
CPT/HCPCS: 36415; 74240-TC-FY; 80053; 82962; 85027; 94760; J0131; Q9967

== ENCOUNTER 2020-04-08 08:48 | Emergency (ER) | payer OTHER ==
[2020-04-08 09:02] VITALS: BMI 31.0
[2020-04-08] MEDS ORDERED: SODIUM CHLORIDE 0.9% 500 ML INFUS.BAG IV ONE (09:28)
[2020-04-08 10:07] LABS: BASO % 0.7 % (0-2.0); EOS % 1.8 % (0-4.5); HEMATOCRIT 49.1 % (35.4-49); HEMOGLOBIN 16.6 GM/dL (11.7-16.9); MCH 30.9 pg (25.7-33.7); MCHC 33.8 g/dl (32.0-35.9); MEAN CELL VOLUME 91.4 fl (80-96); NEUT % 40.5 % (42.8-82.8); PLATELET COUNT 229 K/MM3 (134-434); RBC 5.37 M/mm3 (4.00-5.60); RDW 13.1 % (11.9-15.9); WHITE BLOOD COUNT 3.9 K/mm3 (4.0-10.0)
[2020-04-08 10:17] LABS: PH,URINE 6.5 (5.0-8.0); URINE APPEARANCE CLOUDY; URINE BILIRUBIN NEGATIVE (NEGATIVE); URINE COLOR YELLOW; URINE GLUCOSE (UA) NEGATIVE (NEGATIVE); URINE KETONE TRACE (NEGATIVE); URINE LEUK ESTERASE NEGATIVE (NEGATIVE); URINE NITRITE NEGATIVE (NEGATIVE); URINE PROTEIN NEGATIVE (NEGATIVE)
[2020-04-08 10:32] LABS: POTASSIUM 4.1 mmol/L (3.5-5.1)
[2020-04-08 10:34] LABS: CALCIUM 9.1 mg/dL (8.5-10.1)
[2020-04-08 10:35] LABS: ALBUMIN 4.2 g/dl (3.4-5.0); BLOOD UREA NITROGEN 13.9 mg/dL (7-18)
[2020-04-08 10:39] LABS: BILIRUBIN,TOTAL 0.9 mg/dL (0.2-1)
[2020-04-08 10:40] LABS: TOT PROT 8.2 g/dl (6.4-8.2)
[2020-04-08 12:51] VITALS: BP 126/83; PULSE 77; TEMP 97.2
== END 2020-04-08 13:30 | disposition home or self-care (01) ==
LOC: JER 08:48
DX: R10.31 Right lower quadrant pain (principal)
CPT/HCPCS: 36415; 74177-TC; 80053; 81003; 83690; 85025; 87086; 99284-25; Q9967